=== PATIENT | female | born 1955 | race Caucasian/White ===

== ENCOUNTER 2016-09-29 09:59 | Outpatient (CLI) | payer OTHER ==
--- NOTE | 2016-09-29 10:50 | DIAGNOSTIC IMAGING REPORT ---
PROCEDURE: US COMPLETE PELVIC W/TRANSVAG INDICATION: POSTMENOPAUSAL BLEEDING TECHNIQUE: Transabdominal and endovaginal toscano scale and color Doppler sonographic images of the female pelvis were obtained. COMPARISON: None. FINDINGS: TRANSABDOMINAL SCANS: Anteverted uterus. Normal right kidney. Lower pole of the left kidney not well visualized but remainder of the left kidney is otherwise unremarkable. TRANSVAGINAL SCANS: The uterus measures 7.1 x 3 x 4.8 cm. Myometrium is heterogeneous but no focal fibroids are identified. Normal endometrium is normal, 2.5 mm. Left ovary measures 2.6 x 1.4 x 1.3 cm and the right ovary 2.6 x 1.0 x 1.7 cm. There is vascular flow to both ovaries. No adnexal mass or free fluid in the cul-de-sac. IMPRESSION: 1. Atrophic changes.
[2016-10-09] MEDS ORDERED: ACETAMINOPHEN P1 TA1 PO (14:18)
== END 2016-09-29 23:00 ==
LOC: US SRH 09:59
DX: N95.0 Postmenopausal bleeding (principal)

== ENCOUNTER 2016-10-10 10:18 | Outpatient (CLI) | payer OTHER ==
[~2016-10-10 10:18] MED LIST: ACETAMINOPHEN P1 TA1 PO
== END 2016-10-10 23:00 ==
LOC: LAB SRH 10:18
DX: N85.01 Benign endometrial hyperplasia (principal)
CPT/HCPCS: 90001; 90004; 90047; 90074; 90148; 90155; 90364; 90469; 91004; 92863; 95059; 98428

== ENCOUNTER 2016-10-13 06:42 | Observation (INO) | payer OTHER ==
[~2016-10-13] VITALS: Ht 157.5 cm; Wt 63.9 kg
[2016-10-13] VITALS (9 sets, daily range): BP systolic 96–115; BP diastolic 54–66
--- NOTE | 2016-10-13 07:27 | NUR ---
PREOP INSTRUCTIONS GIVEN TO PATIENT AND HER . QUESTIONS ANSWERED. PATIENT VERBALIZES UNDERSTANDING. CONSENT CONFIRMED. SCOPALOMINE PATCH BEHIND LEFT EAR. SCDs ON. PATIENT RESTING COMFORTABLY. IN ROOM. KB
--- NOTE | 2016-10-13 11:51 | Operative Report ---
Operative Report Date of Surgery: 10/13/16 Preoperate Diagnosis: 1. 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 History of LILIANA Postoperative Diagnosis: 1. 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 History of LILIANA Surgeon: Donna Benavidez MD Electronics Recycler Surgeon: León Roger MD Procedure Performed: 1. Diagnostic laparoscopy 2. Total laparoscopic hysterectomy 3. Bilateral salpingo-oophorectomy Anesthesia: General endotracheal Indications: 1. Postmenopausal bleeding 2. Complex Hyperplasia without atypia 3. History of LILIANA Surgical Technique: The patient was taken to the OR where endotracheal anesthesia was administered without difficulty. She was then placed in the dorsal lithotomy position and her abdomen and vagina were prepped and draped in the normal sterile fashion. A time out was performed. A elizabeth catheter was then inserted into the bladder and passed off to anesthesia. A weighted speculum was then inserted into the vagina and a Walsh retractor was used to help visualized the cervix. The cervix was grasped with a single-tooth tenaculum at the 12 o'clock position and then dilated with Lexie cervical dilators to allow for placement of the Vcare uterine manipulator. The uterus was then sounded and noted to be longer than it had sounded in the office, so perforation was noted. The Vcare was then placed. Attention was then turned to the abdomen where a 10mm infraumbilical skin incision was made with the scalpel. The Veress needle was then inserted into the abdominal cavity to allow for insufflation of CO2 gas. Once a pressure of 15mmHg was reached an 11mm port was placed with the laparoscopic camera to allow for visualization during insertion. At that time a 5mm port was placed in the right lower quadrant followed by a 12mm port in the left lower quadrant. The pelvis was visualized and findings were as noted. The Thunderbeat cautery device was then used to seal and cut the IP ligament on the left side, followed by the round ligament. The parametrium was skeletonized and taken in separate anterior and posterior layers down to the level of the uterine vessels. The vesicouterine peritoneum was then dissected away from the cervix and uterus, creating the bladder flap. The uterine vessels were then sealed and cut at the level of the internal cervical os, and then further skeletonized away from the cup of the uterine manipulator. This process was repeated on the right side. The Thunderbeat was then used to perform the colpotomy, using the cup of the uterine manipulator as a guide. Once the colpotomy was complete the uterus was pulled out of the abdomen through the vagina and passed off as one specimen to be sent to pathology. A sterile glove with a surgical lap in it was then placed into the vagina to provide a seal. Three separate figure of 8 sutures using 0 Polysorb were performed laparoscopically to close the vaginal cuff, closing the right and left angles first. The pelvis was then irrigated and found to be hemostatic. A Greg Kim device was used to close the fascia of the 12 and 11 mm port sites with 0 free ties. The skin of all port sites was then closed with 4-0 Polysorb, steri-strips and a Tegaderm bandage. The glove with lap was removed from the vagina, the patient was cleaned and placed supine on the table. She was awoken from general anesthesia and taken to the PACU in stable condition. All sponge, lap and needle counts were correct x2. Findings 1. Normal uterus, fallopian tubes and ovaries 2. Perforation of the uterus at the fundus
--- NOTE | 2016-10-13 12:18 | NUR ---
PT IS AWAKE AND ALERT.PT STATES SHE IS WARM AND COMFORTABLE. PT DENIES PAIN OR NAUSEA. ABDOMEN IS SOFT. DRESSING IS CLEAN AND DRY. [place]NANDE[facility] CATHETER IS IN PLACE, SECURED. U/O 100 ML IN PACU. TALKED TO PT IN PACU. QUESTIONS ANSWERED.
--- NOTE | 2016-10-13 12:50 | NUR ---
RECEIVED PT FROM PACU. ALERT, ORIENTED, COHERENT, COOPERATIVE. V/S TAKEN AND RECORDED. ASSESSENT DONE. PT DENIES PAIN, N/V AT THIS TIME, WITH 3 TROCHAR SITES. DRESSINGS ARE CLEAN, DRY AND INTACT. ICE CHIPS, ICE WATER AND CRNABERRY JUICE GIVEN. ENC PT TO AMBULATE. PT AND UNDERSTOOD. NEEDS ATTENDED.
--- NOTE | 2016-10-13 12:55 | Provider's Discharge Care Plan ---
Problem, Goal, Plan Problem List 1. Post-operative state Instructions: Follow up as directed, Increase activity level, Take meds as directed
--- NOTE | 2016-10-13 12:55 | Provider's Discharge Care Plan ---
Problem, Goal, Plan Problem List 1. Post-operative state Instructions: Follow up as directed, Increase activity level, Take meds as directed
--- NOTE | 2016-10-13 18:34 | NUR ---
PATIENT IS ALERT AND ORIENTED. NO C/O N/V. BOWEL TONES PRESET. WAS PASSED OFF IN REPORT IS AWARE OF CURRENT LAB VALUES. CALLED DR YOUNG REGARDING DVT PROPHOLAXIS WHETHER OR NOT DR WANTS SCDS ORDERED OR LOVONOX INJECTIONS. NO CALL BACK YET. PATENT RESTING IN HER ROOOM.
--- NOTE | 2016-10-13 19:03 | NUR ---
TOOK OUT FULLY CATHETER. WILL MONITOR HER VOIDING.
--- NOTE | 2016-10-14 00:06 | NUR ---
RESTING IN BED, DENIES ANY PAIN AT THIS TIME. 3 TROCAR SITES DRESSINGS ON ABDOMEN CDI.
[2016-10-14 02:39] VITALS: BP 122/65
--- NOTE | 2016-10-14 02:55 | NUR ---
AMBULATING IN HALLWAY, VERBALIZED BURPING, NO FLATUS.
[2016-10-14 06:44] VITALS: BP 111/62
[2016-10-14] MEDS ORDERED: CALCIUM 500/VITAMI1 (08:08)
[2016-10-14] MEDS ORDERED: FISH OIL (08:09)
[2016-10-14] MEDS ORDERED: MAGNESIUM400 M1 (08:09)
[2016-10-14] MEDS ORDERED: NITROFURANTOIN50 MG PO (08:10)
--- NOTE | 2016-10-14 08:39 | Progress Note ---
Subjective General 61 yo POD #1 s/p TLH, BSO. Pain controlled with PO pain meds. Voiding, but is having some dysuria. Still on antibiotic for UTI. Ambulating. Tolerating breakfast. Ready to go home. Constitutional Denies: Fever, Chills, Sweats. Respiratory Denies: Cough. Cardiovascular Denies: Chest Pain. Gastrointestinal Abdominal Pain. Denies: Nausea, Vomiting. Genitourinary Dysuria, Frequency. Skin Denies: Bruising. Physical Exam Vital Signs / I&Os Vital Signs Date Time Temp Pulse Resp B/P Pulse O2 O2 Flow FiO2 Ox Delivery Rate 10/14 0644 98.1 55 18 111/62 99 Room Air 10/14 0239 98.2 64 18 122/65 96 Room Air 10/13 2237 98.1 63 16 98/57 97 Room Air 10/13 1810 97.9 69 16 96/54 100 Room Air 10/13 1545 97.9 72 16 102/57 98 Nasal 2.0 Cannula 10/13 1445 98.1 66 16 103/65 100 Nasal 2.0 Cannula 10/13 1415 97.7 72 16 115/66 100 Nasal 2.0 Cannula 10/13 1345 69 18 115/66 100 Nasal 2.0 Cannula 10/13 1333 65 16 107/55 100 Nasal 2.0 Cannula 10/13 1310 59 18 112/62 100 Nasal 2.0 Cannula 10/13 1255 97.5 52 16 103/61 99 Nasal 2.0 Cannula 10/13 1250 Nasal 2.0 Cannula 10/13 1247 98.2 52 16 104/57 100 10/13 1240 53 13 103/51 100 Nasal 3.0 Cannula 10/13 1235 54 19 104/60 100 Nasal 3.0 Cannula 10/13 1230 61 16 108/55 100 Nasal 3.0 Cannula 10/13 1225 61 13 103/66 100 Nasal 3.0 Cannula 10/13 1220 58 19 98/54 100 Nasal 3.0 Cannula 10/13 1215 49 11 99/55 100 Nasal 3.0 Cannula 10/13 1210 53 17 101/56 100 Nasal 3.0 Cannula 10/13 1205 59 18 91/58 100 Nasal 3.0 Cannula 10/13 1200 59 19 101/57 100 Nasal 3.0 Cannula 10/13 1155 59 17 101/57 100 Nasal 3.0 Cannula 10/13 1150 58 19 105/56 100 Nasal 3.0 Cannula 10/13 1145 66 17 103/57 100 Mask 10.0 10/13 1140 61 13 102/60 100 Mask 10.0 10/13 1136 97.5 65 12 118/47 100 Mask 10.0 I&O 10/14 0000 10/13 1600 10/13 0800 Intake Total 960 1850 50 Output Total 1525 1350 Balance -565 500 50 General Appearance Alert, Oriented X3, Cooperative, No acute distress HEENT Normal exam, Atraumatic Lungs Normal exam Cardiovascular Normal exam Abdomen Normal exam, Normal bowel sounds, Soft, appropriate tenderness Extremities No cyanosis, No clubbing, No edema LAB Results Laboratory Tests 10/14 0540 Hematology WBC (4.5 - 11.5 K/uL) 6.2 RBC (4.00 - 5.20 M/uL) 3.71 Hgb (12.0 - 16.0 gm/dL) 11.0 Hct (36.0 - 46.0 %) 32.5 MCV (80 - 100 fL) 87 MCH (26 - 34 pg) 30 RDW (11.6 - 14.8 %) 13.5 Neut % (Auto) (50 - 75 %) 71.5 Lymph % (Auto) (25 - 40 %) 19.6 Hutchinson % (Auto) (3 - 14 %) 7.6 Eos % (Auto) (0 - 4 %) 1.1 Baso % (Auto) (0 - 2 %) 0.2 Plt Count, EDTA (150 - 400 K/uL) 191 PUBS MCHC (31 - 37 g/dL) 34 Assessment and Plan Problem List 1. Post-operative state Plan 61 yo POD #1 s/p TLH, BSO 1. Pain controlled with PO pain meds. Will send home with Rx for [place] and Ibuprofen 2. UTI. Continue Macrobid. Will send home with Rx for Pyridium 3. Bowel. Will send home with Rx for Colace due to narcotic pain med use. 4. Discharge home today. Follow-up in 2 weeks and 6 weeks.
[2016-10-14] MEDS ORDERED: VICODIN EQUIVAL1 TAB PO (08:41)
[2016-10-14] MEDS ORDERED: IBUPROFEN600 MG PO (08:41)
[2016-10-14] MEDS ORDERED: COLACE100 MG PO (08:42)
[2016-10-14] MEDS ORDERED: PYRIDIUM200 MG PO (08:43)
--- NOTE | 2016-10-14 10:49 | NUR ---
PT DC TO HOME AT 0935 THIS MORNING WITH SPOUSE VIA PRIVATE VEHICLE. PT'S OWN MEDICATION GIVEN TO PT FROM [facility]. PT DENIES PAIN/N/V. DRESSINGS CDI. VSS. ALL QUESTIONS HAVE BEEN ANSWERED. ALL BELONGING WITH PT.
== END 2016-10-14 09:35 | disposition home or self-care (01) ==
LOC: OR SRH 06:42 → SCU SRH 06:43 → OR SRH 08:30 → ACUTE2 SRH 12:55 → OR SRH 14:00 → ACUTE2 SRH 14:00
PROVIDERS: ADMIT Obstetrics & Gynecology
PROC: 0UTC4ZZ Resection of Cervix, Percutaneous Endoscopic Approach (ICD-10-PCS; principal; 2016-10-13 08:30)
PROC: 0UT24ZZ Resection of Bilateral Ovaries, Percutaneous Endoscopic Approach (ICD-10-PCS; principal; 2016-10-13 08:30)
PROC: 0UT94ZZ Resection of Uterus, Percutaneous Endoscopic Approach (ICD-10-PCS; principal; 2016-10-13 08:30)
PROC: 0UT74ZZ Resection of Bilateral Fallopian Tubes, Percutaneous Endoscopic Approach (ICD-10-PCS; principal; 2016-10-13 08:30)
DX: N85.01 Benign endometrial hyperplasia (principal); N95.0 Postmenopausal bleeding; N39.0 Urinary tract infection, site not specified; A63.0 Anogenital (venereal) warts
CPT/HCPCS: 29229; 29230; 50002; 60001; 70002; 80102; 80212; 80248; 82669; 82672; 82794; 82897; 83475; 83587; 84038; 90074; 95059

== ENCOUNTER 2016-12-23 08:53 | Outpatient (CLI) | payer OTHER ==
[~2016-12-23 08:53] MED LIST changes: +CALCIUM 500/VITAMI1; +COLACE100 MG PO; +FISH OIL; +IBUPROFEN600 MG PO; +MAGNESIUM400 M1; +NITROFURANTOIN50 MG PO; +PYRIDIUM200 MG PO; +VICODIN EQUIVAL1 TAB PO
--- NOTE | 2016-12-23 10:47 | DIAGNOSTIC IMAGING REPORT ---
PROCEDURE: MG BILATERAL SCREENING W/CAD INDICATION: Screening, personal history of right cyst removal. TECHNIQUE: Standard CC and MLO views bilaterally. Computer aided detection was used. COMPARISON: 02/04/2015, 01/17/2014, 02/14/2013 FINDINGS: Dense fibroglandular tissue is present bilaterally. No areas of architectural distortion, or suspicious microcalcifications. Partially obscured, ovoid 10 mm mass in the 2 o'clock position of the right breast in the mid to posterior glandular tissue. No adjacent architectural distortion. IMPRESSION: 1. 10 mm developing density in the medial right breast as described. Given the patient's history, cyst is most likely. Further evaluation with spot compression and ultrasound is recommended. 2. The patient will be contacted. RESULT CODE: 0- Incomplete; needs additional evaluation. A. A negative report should not delay biopsy if a dominant or clinically suspicious mass is present. 10-15% of cancers are not identified by x-ray. B. A negative report may reinforce clinical impression. C. Adenosis and dense breasts may obscure an underlying neoplasm. D. False positive reports average 6-10%. E.. A yearly screening mammogram is recommended. A reminder letter will be scheduled.
== END 2016-12-23 23:00 ==
LOC: MAM SRH 08:53
DX: Z12.31 Encounter for screening mammogram for malignant neoplasm of breast (principal)

== ENCOUNTER 2017-01-05 13:31 | Outpatient (CLI) | payer OTHER ==
--- NOTE | 2017-01-05 14:56 | DIAGNOSTIC IMAGING REPORT ---
PROCEDURE: MG UNILATERAL DIAG-RT W/CAD INDICATION: Follow-up right breast asymmetry. TECHNIQUE: True lateral digital view of the right breast. In addition, spot compression CC and MLO views were obtained of the medial right breast (region of clinical concern). Finally, high-resolution right breast ultrasound was performed (18 mHz). COMPARISON: Compared to screening mammogram studies of 12/23/2016, 02/04/2015, and 01/17/2014. FINDINGS: MAMMOGRAM: Computer-aided detection applied. Dense parenchymal pattern with a few dystrophic calcifications. No evidence of mass or suspicious calcification. BREAST ULTRASOUND: There are minor cystic changes in the right breast including a 7 mm x 3 mm simple cyst in the medial right breast. IMPRESSION: 1. Minor cystic changes of the right breast with 7 mm x 3 mm cyst in the medial right breast. 2. Otherwise negative mammogram and right breast ultrasound. 3. Resume routine screening schedule (December 2017). 4. Findings discussed with the patient. RESULT CODE: 2- Benign finding(s). A. A negative report should not delay biopsy if a dominant or clinically suspicious mass is present. 10-15% of cancers are not identified by x-ray. B. A negative report may reinforce clinical impression. C. Adenosis and dense breasts may obscure an underlying neoplasm. D. False positive reports average 6-10%. E.. A yearly screening mammogram is recommended. A reminder letter will be scheduled.
== END 2017-01-05 23:00 | disposition home or self-care (01) ==
LOC: MAM SRH 13:31
DX: N60.01 Solitary cyst of right breast (principal)

== ENCOUNTER 2017-01-14 08:11 | Day surgery (SDC) | payer OTHER ==
[~2017-01-14] VITALS: Ht 157.5 cm; Wt 61.0 kg
[~2017-01-14 08:11] MED LIST changes: +ESTRADIOL0.5 MG PO
--- NOTE | 2017-01-14 08:43 | NUR ---
PRE OP INSTRUCTIONS GIVEN AND SAFETY ISSUES DISCUSSED PT AND SPOUSE HAD QUESTIONS ANSWERED PT CONFIRMED PROCEDURE PT SIGNED CONSENT PT WATCHING TV
--- NOTE | 2017-01-14 09:40 | NUR ---
INTRODUCED SELF TO PT IN PRE OP HOLDING. PT VERIFIED NAME, BIRTHDATE AND SURGICAL CONSENT. PT DENIED ALLERGIES. PT STATED COMPLETING COLONOSCOPY PREP AT APPROX 0445 THIS AM AND NPO SINCE THAT TIME. PT TOOK ROUTINE MEDICATIONS 2 DAYS AGO. PT DENIES DIABETES AND HIGH BLOOD PRESSURE. PT CHART REVIEWED AND PT QUESTIONS ANSWERED. ASHLEY
--- NOTE | 2017-01-14 10:19 | NUR ---
PT RESTATED NAME, BIRTHDATE AND SURGICAL CONSENT AFTER ENTERING OR SUITE. PT AGAIN DENIED ALLERGIES. SD
--- NOTE | 2017-01-14 11:05 | NUR ---
PATIENT ARRIVED TO PACU AT 1101. SPONT RESP. AROUSABLE. VITALS STABLE. DENIES ANY DISCOMFORT OR NAUSEA. WILL CONTINUE TO MONITOR.
--- NOTE | 2017-01-14 11:13 | NUR ---
PRE OP INSTRUCTIONS GIVEN AND SAFETY ISSUES DISCUSSED PT HAD QUESTIONS ANSWERED PT CONFIRMED PROCEDURE PT SIGNED CONSENT PT WATCHING TV
--- NOTE | 2017-01-14 11:14 | Operative Report ---
Operative Report Date of Surgery: 01/14/17 Preoperate Diagnosis: colon cancer risk Postoperative Diagnosis: same Surgeon: Elie De Santiago MD Procedure Performed: colonoscopy Anesthesia: tivg Indications: 61 year old 12 years post last c scope. Surgical Technique: Pt. was taken to the endoscopy suite where TIVG was administered and the pt. placed in the left lateral decubitus position. The well lubricated colonoscope was advance to the cecum with direct vision and abdominal counterpressure. The ileo cecal valve and cecal tip were visualized. On the withdrawal the entire colon was inspected including a retroflexed view of the rectum. No polyps or tumors were seen and no diverticulii were visualized. The pt. left in good condition.
--- NOTE | 2017-01-14 11:19 | NUR ---
PATIENT PASSING GAS
--- NOTE | 2017-01-14 11:22 | Provider's Discharge Care Plan ---
Problem, Goal, Plan Problem List 1. At risk for colon cancer
--- NOTE | 2017-01-14 11:22 | Provider's Discharge Care Plan ---
Problem, Goal, Plan Problem List 1. At risk for colon cancer
--- NOTE | 2017-01-14 11:33 | NUR ---
PT RETURNED FROM PACU PASSING FLATUS NO C/O DISCOMFORT
[2017-01-14 11:59] VITALS: BP 103/66
--- NOTE | 2017-01-14 12:00 | NUR ---
PT HAS REMAINED COMFORTABLE ASKING TO GO HOME REVIEWED DISCHARGE INSTRUCTIONS VERBAL AND WRITTEN PT AND SPOUSE EXPRESSED UNDERSTANDING PT RECITED BACK NO DRIVING
--- NOTE | 2017-01-14 12:05 | NUR ---
PT DISCHARGED AMBULATORY ACCOMPANIED BY SPOUSE
== END 2017-01-14 12:05 | disposition home or self-care (01) ==
LOC: OR SRH 08:11 → SCU SRH 08:11 → OR SRH 10:15
PROVIDERS: Surgery
PROC: 0DJD8ZZ Inspection of Lower Intestinal Tract, Via Natural or Artificial Opening Endoscopic (ICD-10-PCS; principal; 2017-01-14 10:15)
DX: Z12.11 Encounter for screening for malignant neoplasm of colon (principal)
CPT/HCPCS: 29229; 29240; 50004; 60001; 83526